=== PATIENT | male | born 1935 | race Caucasian/White ===

== ENCOUNTER 2021-03-08 04:11 | Emergency (ER) | payer MEDICARE, OTHER ==
[~2021-03-08] VITALS: Ht 177.8 cm; Wt 63.5 kg
[~2021-03-08 04:11] MED LIST: ANEXSIA 5-3251 EACH; Z IRON PO; Z.0.COZAAR50 MG; Z.0.SYNTHROID100 MCG PO; Z.0.VALIUM2 MG PO; [UNRECOGNIZED DRUG - OTHER]; [UNRECOGNIZED DRUG - OTHER]
[2021-03-08 05:27] VITALS: BP 120/86
== END 2021-03-08 05:37 | disposition home or self-care (01) ==
LOC: ER 04:59
DX: D64.9 Anemia, unspecified (principal); I10 Essential (primary) hypertension; E03.9 Hypothyroidism, unspecified; F32.9 Major depressive disorder, single episode, unspecified
CPT/HCPCS: 99282

== ENCOUNTER 2021-03-09 19:47 | Observation (INO) | payer MEDICARE, OTHER ==
[~2021-03-09] VITALS: Ht 177.8 cm; Wt 63.5 kg
[2021-03-09] MEDS ORDERED: ASPIRIN 81 MG CHEW TAB PO ONE (20:00)
[2021-03-09 21:12] LABS: BASOPHILS % 0.3 % (0.0-1.0); EOSINOPHILS % 0.4 % (0.0-6.0); HEMATOCRIT 21.7 % (38.2-49.6); LYMPHOCYTES # (AUTO) 4.5 (1.0-3.2); LYMPHOCYTES % 64.3 % (18.0-39.1); MEAN CORPUSCULAR HEMOGLOBIN 28.2 pg (28-32); MEAN CORPUSCULAR HGB CONC 32.3 g/dL (31-35); MEAN CORPUSCULAR VOLUME 87.5 fL (81-99); MONOCYTES # (AUTO) 0.8 (0.2-0.8); MONOCYTES % 11.8 % (4.4-11.3); NEUTROPHILS # (AUTO) 1.6 (2.1-6.9); NEUTROPHILS % 23.1 % (38.7-80.0); PLATELET COUNT 307 x10e3/uL (140-360); RED BLOOD COUNT 2.48 x10e6/uL (4.3-5.7); RED CELL DISTRIBUTION WIDTH 15.5 % (11.7-14.4)
[2021-03-09 21:29] LABS: ALANINE AMINOTRANSFERASE 132 IU/L (0-55); ALBUMIN/GLOBULIN RATIO 1.4 (0.8-2.0); ALKALINE PHOSPHATASE 97 IU/L (40-150); ANION GAP 10.1 mmol/L (8-16); BLOOD UREA NITROGEN 20 mg/dL (7-26); BUN/CREATININE RATIO 32 (6-25); CALCIUM 8.1 mg/dL (8.4-10.2); CARBON DIOXIDE 30 mmol/L (22-29); CHLORIDE 98 mmol/L (98-107); CREATININE, SERUM 0.63 mg/dL (0.72-1.25); EST GLOMERULAR FILTRATION RATE > 60 ML/MIN (60-); GLUCOSE 114 mg/dL (74-118); POTASSIUM 4.1 mmol/L (3.5-5.1); SODIUM 134 mmol/L (136-145)
[2021-03-09 21:30] LABS: CREATINE KINASE < 7 IU/L (30-200)
[2021-03-09] MEDS ORDERED: SODIUM CHLORIDE 0.9% 250ML 250 ML IV ONE (22:00)
[2021-03-09] MEDS ORDERED: HYDROCODONE/APAP 5MG-325MG TAB PO ONE (22:45)
[2021-03-10 01:28] VITALS: BP 121/63
[2021-03-10] MEDS ORDERED: SODIUM CHLORIDE 0.9% 1000ML 1,000 ML ONE (02:22)
[2021-03-10 02:35] VITALS: BP 121/63
[2021-03-10] MEDS ORDERED: ASPIRIN81 MG PO (03:16)
[2021-03-10] MEDS ORDERED: FLOMAX0.4 MG PO (03:16)
[2021-03-10] MEDS ORDERED: MIRTAZAPINE15 MG PO (03:16)
[2021-03-10] MEDS ORDERED: SODIUM CHLORIDE1 GM PO (03:16)
[2021-03-10] MEDS ORDERED: POLYETHYLENE GL17 GM PO (03:16)
[2021-03-10] MEDS ORDERED: CALCIUM CARBON500 MG PO (03:16)
[2021-03-10] MEDS ORDERED: MELATONIN3 MG PO (03:16)
[2021-03-10] MEDS ORDERED: PERCOCET 5-3251 EACH PO (03:16)
[2021-03-10] MEDS ORDERED: LACTULOSE20 GM/30 M PO (03:16)
[2021-03-10] MEDS ORDERED: ASCORBIC ACID500 M2 PO (03:16)
[2021-03-10] MEDS ORDERED: ACETAMINOPHEN325 M1 PO (03:16)
[2021-03-10] MEDS ORDERED: DULCOLAX10 MG PR (03:16)
[2021-03-10 07:55] VITALS: BP 116/62
[2021-03-10 08:13] VITALS: BP 166/62
[2021-03-10 09:02] LABS: BASOPHILS % 0.2 % (0.0-1.0); EOSINOPHILS # (AUTO) 0.1 (0.0-0.4); EOSINOPHILS % 0.9 % (0.0-6.0); HEMATOCRIT 24.3 % (38.2-49.6); HEMOGLOBIN 8.1 g/dL (14.0-18.0); LYMPHOCYTES # (AUTO) 3.4 (1.0-3.2); LYMPHOCYTES % 64.7 % (18.0-39.1); MEAN CORPUSCULAR HEMOGLOBIN 29.5 pg (28-32); MEAN CORPUSCULAR HGB CONC 33.3 g/dL (31-35); MEAN CORPUSCULAR VOLUME 88.4 fL (81-99); MONOCYTES # (AUTO) 0.5 (0.2-0.8); MONOCYTES % 9.6 % (4.4-11.3); NEUTROPHILS # (AUTO) 1.3 (2.1-6.9); NEUTROPHILS % 24.4 % (38.7-80.0); PLATELET COUNT 223 x10e3/uL (140-360); RED BLOOD COUNT 2.75 x10e6/uL (4.3-5.7); RED CELL DISTRIBUTION WIDTH 14.9 % (11.7-14.4)
[2021-03-10 10:35] LABS: EOSINOPHILS % (MANUAL) 1 % (0-7); MONOCYTES % (MANUAL) 5 % (3.4-9.0)
[2021-03-10 10:36] LABS: LYMPHOCYTES % (MANUAL) 56 % (19-48); NEUTROPHILS % (MANUAL) 27 % (40-74); PLATELET ESTIMATE ADEQUATE; PLATELET MORPHOLOGY COMMENT NORMAL; RBC MORPHOLOGY COMMENT NORMAL
[2021-03-10 10:37] LABS: ANISOCYTOSIS SLIGHT; OVALOCYTES FEW
[2021-03-10 12:00] VITALS: BP 101/60
[2021-03-10 15:52] VITALS: BP 124/72
== END 2021-03-10 17:45 ==
LOC: ER 20:16 → ERHOLD 22:15 → MED/SURG3 03-10 01:39
DX: D64.9 Anemia, unspecified (principal); Z20.822 Contact with and (suspected) exposure to COVID-19; I10 Essential (primary) hypertension; E03.9 Hypothyroidism, unspecified; F32.9 Major depressive disorder, single episode, unspecified
CPT/HCPCS: 36415 ×2; 80053; 82550; 82553; 84484; 85025 ×2; 86850; 86900; 86920; 93005; 99284; G0378 ×2; J7030; P9016; U0002